=== PATIENT | female | born 1990 | race Caucasian/White ===

== ENCOUNTER 2017-05-14 18:43 | Emergency (ER) | payer MEDICAID ==
[2017-05-14 22:57] LABS: BASOPHIL % 0.3 % (0-2); PLATELET COUNT 285 x10^3mcL (130-400); RED CELL DISTRIBUTION WIDTH 13.3 % (11.5-14.5)
[2017-05-14 23:06] LABS: UA SPECIFIC GRAVITY <=1.005 (1.005-1.035); microscopic required? YES; urine erythrocyte 1+ (NEGATIVE)
[2017-05-15 01:12] VITALS: BP 122/77
== END 2017-05-15 01:12 | disposition home or self-care (01) ==
LOC: ED 18:43
PROVIDERS: Emergency Medicine
DX: O20.0 Threatened abortion (principal); O23.41 Unspecified infection of urinary tract in pregnancy, first trimester; Z3A.08 8 weeks gestation of pregnancy
CPT/HCPCS: 36415

== ENCOUNTER 2018-02-04 11:49 | Observation (INO) | payer MEDICAID ==
[~2018-02-04] VITALS: Ht 157.5 cm; Wt 69.9 kg
[2018-02-04 12:00] VITALS: Ht 157.5 cm; Wt 69.9 kg
[2018-02-04 13:25] LABS: BASOPHIL % 0.2 % (0-2); PLATELET COUNT 324 x10^3mcL (130-400)
[2018-02-04 13:28] LABS: RED CELL DISTRIBUTION WIDTH 15.2 % (11.5-14.5)
[2018-02-04 13:32] LABS: CALCIUM 9.2 mg/dL (8.5-10.1); CARBON DIOXIDE 27.9 mmol/L (21-32); CHLORIDE SERUM 103 mmol/L (98-107); CREATININE SERUM 0.6 mg/dL (0.6-1.0); GFR1 > 60 mL/min; GLUCOSE SERUM 96 mg/dL (74-106); POTASSIUM SERUM 4.5 mmol/L (3.5-5.1); SODIUM SERUM 137 mmol/L (136-145)
[2018-02-04 13:36] LABS: ALBUMIN 4.1 g/dL (3.4-5.0); ALKALINE PHOSPHATASE 98 U/L (46-116); ALT/SGPT 37 U/L (14-59); AST/SGOT 16 U/L (15-37); BILIRUBIN TOTAL 0.32 mg/dL (0.20-1.00); LIPASE 145 IU/L (73-393); TOTAL PROTEIN, SERUM 7.6 g/dL (6.4-8.2)
[2018-02-04 16:18] VITALS: BP 142/76
[2018-02-04 19:53] VITALS: BP 108/69
[2018-02-05 05:59] VITALS: BP 99/68
[2018-02-05 06:04] LABS: BASOPHIL % 0.2 % (0-2); PLATELET COUNT 294 x10^3mcL (130-400)
[2018-02-05 06:35] LABS: CALCIUM 8.7 mg/dL (8.5-10.1); CARBON DIOXIDE 24.9 mmol/L (21-32); CHLORIDE SERUM 104 mmol/L (98-107); CREATININE SERUM 0.5 mg/dL (0.6-1.0); GFR1 > 60 mL/min; GLUCOSE SERUM 92 mg/dL (74-106); POTASSIUM SERUM 4.3 mmol/L (3.5-5.1); SODIUM SERUM 138 mmol/L (136-145)
[2018-02-05 06:41] LABS: RED CELL DISTRIBUTION WIDTH 15.9 % (11.5-14.5)
[2018-02-05 08:18] VITALS: BP 107/68
[2018-02-05 10:42] VITALS: BP 107/68
== END 2018-02-05 11:15 | disposition home or self-care (01) | DRG 468 ==
LOC: ED 11:49 → MU 15:23 → DU 15:23
PROVIDERS: Emergency Medicine; Family Medicine
DX: N28.89 Other specified disorders of kidney and ureter (principal); K80.20 Calculus of gallbladder without cholecystitis without obstruction; R11.0 Nausea; Z68.27 Body mass index [BMI] 27.0-27.9, adult
CPT/HCPCS: C9113; G0378; J7030; Q9967